=== PATIENT | female | born 1990 | race Caucasian/White ===

== ENCOUNTER 2016-10-16 17:42 | Inpatient (IN) | payer MEDICARE, MEDICAID ==
[~2016-10-16] VITALS: Ht 157.5 cm; Wt 45.8 kg
[~2016-10-16 17:42] MED LIST: ALBU2.5V38 IH; AMLO10TA4 JT; Blood Sugar Diagnostic IN; CLON0.1T14 PO; EPOE1VIA7 IJ; FOLI0.8T23 JT; Hydralazine Hcl GT; IPRA3AMP IH; LABE100T15 GT; LACT1CAP61 JT; LANO3.5O3 EACHEYE; LEVE1000 PO; LEVE100S JT; LISI20TA61 PO; MUPI22OI7; Nut.tx.gluc.intoler,Lac-Fr,Soy GT; PANT40TA4 JT; PARI1CAP JT; Phenytoin JT; SENN-22 JT; VANC500F IV
[2016-10-16 18:05] VITALS: BP 99/68
[2016-10-16 18:13] LABS: BASOPHILS # (AUTO) 0.1 /CMM (0.0-0.2); BASOPHILS % (AUTO) 1.1 % (0.0-2.0); DIFF TOTAL % 100 %; EOSINOPHILS # (AUTO) 0.1 /CMM (0.0-0.7); EOSINOPHILS % (AUTO) 1.6 % (0.0-6.0); HEMATOCRIT 45 % (33-45); HEMOGLOBIN 14.4 g/dL (11.5-14.8); LYMPHOCYTES # (AUTO) 1.1 /CMM (0.8-4.8); LYMPHOCYTES % (AUTO) 14.5 % (20.0-44.0); MEAN CORPUSCULAR HEMOGLOBIN 32 PG (26.0-33.0); MEAN CORPUSCULAR HGB CONC 32 g/dl (31.0-36.0); MEAN CORPUSCULAR VOLUME 101 fL (82-100); MONOCYTES # (AUTO) 0.5 /CMM (0.1-1.30); MONOCYTES % (AUTO) 6.9 % (2.0-12.0); NEUTROPHILS % (AUTO) 75.9 % (43.0-81.0); PLATELET COUNT (AUTO) 195 /CMM (150-450); RED BLOOD CELL COUNT(AUTO) 4.48 MIL/uL (4.0-5.2); WHITE BLOOD COUNT (AUTO) 7.8 K/uL (4.3-11.0)
[2016-10-16 18:24] LABS: CALCIUM, SERUM 10.5 mg/dL (8.5-10.1); CREATININE 5.1 mg/dL (0.6-1.3); POTASSIUM 4.2 mmol/L (3.5-5.1)
[2016-10-16 18:30] LABS: BILIRUBIN,DIRECT 0.2 mg/dL (0.0-0.2); BILIRUBIN,TOTAL 0.6 mg/dL (0.2-1.0); INDIRECT BILIRUBIN 0.4 mg/dL (0.0-1.1); TOTAL PROTEIN, SERUM 10.6 g/dL (6.4-8.2)
[2016-10-16] MEDS ORDERED: CARV12.52 JT (19:15)
[2016-10-16] MEDS ORDERED: CLON0.1T JT (19:15)
[2016-10-16] MEDS ORDERED: AMLO5TAB2 JT (19:15)
[2016-10-16] MEDS ORDERED: OMEP20CA10 JT (19:15)
[2016-10-16] MEDS ORDERED: LEVO25TA9 JT (19:15)
[2016-10-16] MEDS ORDERED: LORA10TA68 JT (19:15)
[2016-10-16] MEDS ORDERED: LEVE100S JT (19:15)
[2016-10-16] MEDS ORDERED: INSU100I4 SQ (19:15)
[2016-10-16] MEDS ORDERED: FOLI1TAB16 JT (19:15)
[2016-10-16] MEDS ORDERED: ACET650S26 JT (19:15)
[2016-10-16] MEDS ORDERED: DEXT15DR6 RIGHTEYE (19:15)
[2016-10-16] MEDS ORDERED: FOLI0.8T2 JT (19:15)
[2016-10-16 20:03] LABS: PROTHROMBIN TIME 11.9 SECS (9.5-12.7)
[2016-10-16 20:04] LABS: PARTIAL THROMBOPLASTIN TIME > 170 SEC (23-34)
[2016-10-16 20:08] VITALS: BP 109/87
[2016-10-16 20:35] VITALS: BP 110/72
[2016-10-16] MEDS ORDERED: ONDANSETRON HCL/PF 4 MG/2 ML VIAL IVP PRN (21:00)
[2016-10-16] MEDS ORDERED: ACETAMINOPHEN 325 MG TABLET PO PRN (21:00)
[2016-10-16] MEDS ORDERED: MAG HYDROX/AL HYDROX/SIMETH 30 ML UDC PO PRN (21:00)
[2016-10-16] MEDS ORDERED: LEVETIRACETAM SOL (5 ML) 100 MG/ML UDC JT SCH (21:00)
[2016-10-16] MEDS ORDERED: MAGNESIUM HYDROXIDE 30 ML UDC PO PRN (21:00)
[2016-10-16] MEDS ORDERED: AMLODIPINE BESYLATE 5 MG TABLET JT SCH (21:00)
[2016-10-16] MEDS ORDERED: DEXTROSE 50%-WATER 50 ML DISP.SYRIN IV PRN (21:00)
[2016-10-16] MEDS ORDERED: Z GUARD REMEDY 2 OZ OINT TP PRN (21:00)
[2016-10-16] MEDS ORDERED: CLONIDINE HCL 0.1 MG TABLET JT PRN (21:00)
[2016-10-16] MEDS ORDERED: INSULIN REGULAR, HUMAN 100 UNIT/ML 3 ML VIAL SQ PRN (21:00)
[2016-10-16] MEDS ORDERED: CARVEDILOL 12.5 MG TABLET JT SCH (21:00)
[2016-10-16] MEDS ORDERED: CARVEDILOL 12.5 MG TABLET ONE (22:05)
[2016-10-16] MEDS ORDERED: LEVETIRACETAM SOL (5 ML) 100 MG/ML UDC ONE (22:06)
[2016-10-16] MEDS ORDERED: AMLODIPINE BESYLATE 5 MG TABLET ONE (22:06)
[2016-10-17] VITALS (25 sets, daily range): BP systolic 32–123; BP diastolic 16–98
[2016-10-17] MEDS: BLOOD SUGAR DIAGNOSTIC 1 EACH STRIP IN SCH ×2 (00:11→05:35)
[2016-10-17] MEDS ORDERED: ONDANSETRON HCL/PF 4 MG/2 ML VIAL ONE (00:49)
[2016-10-17] MEDS ORDERED: ACETAMINOPHEN 650 MG/20.3 ML UDC ONE (03:16)
[2016-10-17] MEDS ORDERED: ACETAMINOPHEN 325 MG TABLET MC PRN (04:00)
[2016-10-17] MEDS ORDERED: ACETAMINOPHEN LIQUID 160 MG/5 ML BOTTLE JT PRN ×2 (04:00)
[2016-10-17 07:23] LABS: BASOPHILS % (AUTO) 0.5 % (0.0-2.0); DIFF TOTAL % 100 %; EOSINOPHILS # (AUTO) 0.1 /CMM (0.0-0.7); EOSINOPHILS % (AUTO) 0.8 % (0.0-6.0); HEMATOCRIT 43 % (33-45); HEMOGLOBIN 14.3 g/dL (11.5-14.8); LYMPHOCYTES # (AUTO) 1.4 /CMM (0.8-4.8); LYMPHOCYTES % (AUTO) 14.5 % (20.0-44.0); MEAN CORPUSCULAR HEMOGLOBIN 33 PG (26.0-33.0); MEAN CORPUSCULAR HGB CONC 33 g/dl (31.0-36.0); MEAN CORPUSCULAR VOLUME 100 fL (82-100); MONOCYTES # (AUTO) 0.6 /CMM (0.1-1.30); MONOCYTES % (AUTO) 5.6 % (2.0-12.0); NEUTROPHILS # (AUTO) 7.8 /CMM (1.8-8.9); NEUTROPHILS % (AUTO) 78.6 % (43.0-81.0); PLATELET COUNT (AUTO) 251 /CMM (150-450); RED BLOOD CELL COUNT(AUTO) 4.34 MIL/uL (4.0-5.2); WHITE BLOOD COUNT (AUTO) 9.9 K/uL (4.3-11.0)
[2016-10-17 07:34] LABS: ALBUMIN 3.7 g/dL (3.4-5.0); BILIRUBIN,TOTAL 0.5 mg/dL (0.2-1.0); CREATININE 6.9 mg/dL (0.6-1.3); PHOSPHORUS 4.4 mg/dL (2.5-4.9); POTASSIUM 5.4 mmol/L (3.5-5.1); TOTAL PROTEIN, SERUM 10.2 g/dL (6.4-8.2)
[2016-10-17 07:44] LABS: THYROID STIMULATING HORMONE 8.317 uIU/mL (0.358-3.74)
[2016-10-17] MEDS ORDERED: IV SET PRIMARY PUMP SET 1 EA INFUS.SET MC ONE ×3 (08:01→09:50)
[2016-10-17] MEDS ORDERED: IV NS 0.9% 1,000 ML ONE ×2 (08:01)
[2016-10-17] MEDS ORDERED: AMIODARONE 900 MG in IV D5W 482 ML IV PRN (09:00)
[2016-10-17] MEDS ORDERED: LORATADINE 10 MG TABLET GT SCH (09:00)
[2016-10-17] MEDS ORDERED: FOLIC ACID 1 MG TABLET GT SCH (09:00)
[2016-10-17 09:04] LABS: ABG BASE EXCESS -1.8 mmol/L; ABG HCO3 23.9 mmol/L; ABG PH 7.353 (7.350-7.450); ABG PO2 114.9 mmHg (75.0-100.0); ABG TOTAL HEMOGLOBIN 13.5 G/dL (12.0-16.0); ALLEN TEST Pass; AaDO2 119.7 mmHg; O2Hb 95.5 % (94.0-97.0)
[2016-10-17 09:04] LABS: ABG BASE EXCESS -9.1 mmol/L; ABG HCO3 15.9 mmol/L; ABG PCO2 31.8 mmHg (35.0-45.0); ABG PH 7.318 (7.350-7.450); ABG PO2 109.1 mmHg (75.0-100.0); ABG TOTAL HEMOGLOBIN 11.9 G/dL (12.0-16.0); AaDO2 572.1 mmHg
[2016-10-17] MEDS ORDERED: VIT B CMPLX 3/FA/VIT C/BIOTIN 1 TAB TABLET JT SCH (09:14)
[2016-10-17] MEDS ORDERED: LEVOTHYROXINE SODIUM 25 MCG TABLET GT SCH (09:16)
[2016-10-17] MEDS ORDERED: PANTOPRAZOLE 40 MG/PACK PACK GT SCH (09:17)
[2016-10-17] MEDS ORDERED: MAG HYDROX/AL HYDROX/SIMETH 30 ML UDC JT PRN (09:22)
[2016-10-17] MEDS ORDERED: PANTOPRAZOLE 40 MG/PACK PACK JT SCH (09:22)
[2016-10-17] MEDS ORDERED: MAGNESIUM HYDROXIDE 30 ML UDC JT PRN (09:23)
[2016-10-17] MEDS ORDERED: VANCOMYCIN 1 GM in IV D5W 250 ML IV ONE ×2 (09:30→10:30)
[2016-10-17] MEDS ORDERED: POLYVINYL ALCOHOL 15 ML BOTTLE OP PRN (09:30)
[2016-10-17] MEDS ORDERED: PIPERACILLIN /TAZOBACTAM 2.25 G in IV D5W 50 ML IV SCH ×2 (10:00→12:00)
[2016-10-17] MEDS ORDERED: NOREPINEPHRINE 16 MG in IV D5W 500 ML IV PRN (10:00)
[2016-10-17] MEDS ORDERED: LIDOCAINE 100MG/5ML DISP SYR IV STA (10:21)
[2016-10-17] MEDS ORDERED: IV LIDOCAINE HCL/D5W/PF/500ML 2,000 MG in PREMIX 1 EA IV PRN (10:30)
[2016-10-17] MEDS ORDERED: PIPERACILLIN /TAZOBACTAM 3.375 G in IV D5W 50 ML IV SCH (10:30)
[2016-10-17] MEDS ORDERED: VANCOMYCIN 500 MG in IV D5W 100 ML IV PRN (11:00)
[2016-10-17] MEDS ORDERED: EXTENSION IV SET 1 EA INFUS.SET MC ONE (11:26)
[2016-10-17] MEDS ORDERED: CALCIUM CHLORIDE 1,000 MG/10 ML DISP.SYRIN IV ONE (12:00)
[2016-10-17] MEDS ORDERED: ACETAMINOPHEN 650 MG/20.3 ML UDC JT PRN (12:00)
[2016-10-17] MEDS ORDERED: ATROPINE SULFATE 1 MG/10 ML DISP.SYRIN IV ONE (12:00)
[2016-10-17] MEDS ORDERED: FEE EMEERGENCY 1 MIN EA MC ONE ×2 (12:00)
[2016-10-17] MEDS ORDERED: Magnesium 1 GM/2 ML VIAL IV ONE (12:00)
[2016-10-17] MEDS ORDERED: AMIODARONE 150 MG/3 ML VIAL IV ONE (12:00)
[2016-10-17] MEDS ORDERED: SODIUM BICARBONATE SYR 50 MEQ/50 ML DISP.SYRIN IV ONE ×3 (12:00→12:30)
[2016-10-17] MEDS ORDERED: EPINEPHRINE (1:10,000) SYRINGE 1 MG/10 ML DISP.SYRIN IVP ONE ×2 (12:00)
[2016-10-17] MEDS ORDERED: FEE PK DOSING 1 MIN EA MC ONE (13:54)
== END 2016-10-17 17:42 | disposition expired | DRG 314 ==
LOC: ER 17:43 → TELE1 20:22 → TELE-TD 10-17 08:15 → ICU 10-17 08:18
PROVIDERS: ADMIT Contractor; ATTEND Contractor
PROC: 5A1935Z Respiratory Ventilation, Less than 24 Consecutive Hours (ICD-10-PCS; principal; 2016-10-16)
PROC: 5A12012 Performance of Cardiac Output, Single, Manual (ICD-10-PCS; 2016-10-17)
PROC: 02HV33Z Insertion of Infusion Device into Superior Vena Cava, Percutaneous Approach (ICD-10-PCS; 2016-10-17)
PROC: B548ZZA Ultrasonography of Superior Vena Cava, Guidance (ICD-10-PCS; 2016-10-17)
DX: T82.49XA Other complication of vascular dialysis catheter, initial encounter (principal); N18.6 End stage renal disease; Z99.11 Dependence on respirator [ventilator] status; J96.11 Chronic respiratory failure with hypoxia; I69.359 Hemiplegia and hemiparesis following cerebral infarction affecting unspecified side; G93.1 Anoxic brain damage, not elsewhere classified; I47.2 Ventricular tachycardia; E11.22 Type 2 diabetes mellitus with diabetic chronic kidney disease; Z99.2 Dependence on renal dialysis; Z93.0 Tracheostomy status; Z98.2 Presence of cerebrospinal fluid drainage device; M19.90 Unspecified osteoarthritis, unspecified site; R13.10 Dysphagia, unspecified; Z93.1 Gastrostomy status; I50.9 Heart failure, unspecified; Z74.01 Bed confinement status; Z86.14 Personal history of Methicillin resistant Staphylococcus aureus infection; Z93.4 Other artificial openings of gastrointestinal tract status; I11.0 Hypertensive heart disease with heart failure
CPT/HCPCS: 31720; 36415; 36600; 71010-TC; 80048-TC; 80053-TC; 80061-TC; 80076-TC; 82803-TC; 82962-TC; 83735-TC; 84100-TC; 84443-TC; 85025-TC; 85730-TC; 87081-TC; 93307-TC; 94003-TC; A4216; A4606; J0171; J0282; J0461; J1815; J1953; J2001; J2405; J2543; J3370; J3475; J3490; J7030; J7060; Z7610